=== PATIENT | female | born 1980 | race Two or more races ===

== ENCOUNTER 2023-12-04 20:40 | Emergency (ER) | payer MEDICAID, OTHER ==
[~2023-12-04] VITALS: Ht 167.6 cm; Wt 80.6 kg
[2023-12-04 21:12] VITALS: BP 148/81; PULSE 89; RESP 18; O2SAT 98
[2023-12-04] MEDS ORDERED: NYS5LQ MT (23:45)
[2023-12-04] MEDS ORDERED: BENZ200C64 PO (23:45)
== END 2023-12-05 02:40 | disposition home or self-care (01) ==
LOC: ER 20:40
DX: B37.0 Candidal stomatitis (principal); R05.9 Cough, unspecified